=== PATIENT | male | born 1975 | race Caucasian/White ===

== ENCOUNTER 2021-06-09 20:14 | Emergency (ER) | payer OTHER ==
[~2021-06-09] VITALS: Ht 185.4 cm; Wt 77.1 kg
[~2021-06-09 20:14] MED LIST: IBUPROFEN 800800 M1 PO; NORCO 5-325 TA1 EACH PO; XANAX 0.5 MG0.5 MG PO; ZOLOFT50 MG PO
[2021-06-09 20:29] VITALS: BP 157/92
== END 2021-06-09 20:47 | disposition left against medical advice (07) ==
LOC: M.ERS 20:14
DX: S01.112A Laceration without foreign body of left eyelid and periocular area, initial encounter (principal); Z53.21 Procedure and treatment not carried out due to patient leaving prior to being seen by health care provider; W22.8XXA Striking against or struck by other objects, initial encounter; Y93.89 Activity, other specified; Y92.89 Other specified places as the place of occurrence of the external cause; Y99.8 Other external cause status